=== PATIENT | male | born 1995 | race Caucasian/White ===

== ENCOUNTER 2017-08-17 14:28 | Emergency (ER) | payer OTHER ==
[~2017-08-17] VITALS: Ht 177.8 cm; Wt 63.5 kg
[~2017-08-17 14:28] MED LIST: Naprosyn500 MG PO
== END 2017-08-17 15:40 | disposition home or self-care (01) ==
LOC: ER 14:28
DX: S61.011A Laceration without foreign body of right thumb without damage to nail, initial encounter (principal); Z23 Encounter for immunization; F17.210 Nicotine dependence, cigarettes, uncomplicated; Z79.1 Long term (current) use of non-steroidal anti-inflammatories (NSAID); W27.4XXA Contact with kitchen utensil, initial encounter
CPT/HCPCS: 12001; 90471; 90714; 99283